=== PATIENT | female | born 1995 ===

== ENCOUNTER 2018-07-28 09:59 | Outpatient (REF) | payer MEDICAID, SELFPAY ==
[2018-07-28 22:54] LABS: TSH (W/Ref FT4) 3.54 uIU/mL (0.358-3.74); Vitamin B12 447 pg/mL (193-986)
== END 2018-07-28 10:19 ==
LOC: NCHCN 09:59
PROVIDERS: Visit Provider Nurse Practitioner Family
DX: F41.8 Other specified anxiety disorders (principal)
CPT/HCPCS: 82607; 84443